=== PATIENT | male | born 1990 | race Caucasian/White ===

== ENCOUNTER 2018-10-26 11:43 | Emergency (ER) | payer BC ==
[2018-10-26] MEDS ORDERED: Ondansetron INJ* 2 MG/ML VIAL IV ONE (12:05)
[2018-10-26] MEDS ORDERED: NS 0.9% 1000 ML** 1,000 ML IV ONE (12:05)
[2018-10-26 12:56] LABS: ABS Monocytes 0.4 10^3/ul (0-0.8); ABS Neutrophils 4.5 10^3/ul (1.5-7.7); Eosinophil % 0.6 %; Hematocrit 50 % (42-52); Hemoglobin 17.6 g/dL (14.0-18.0); Lymphocyte % 16.7 %; Mean Corpuscular HGB Conc 36 g/dL (31-36); Mean Corpuscular Hemoglobin 31 pg (27-31); Mean Corpuscular Volume 89 fL (80-94); Mean Platelet Volume 7.9 fL (7.4-10.4); Nucleated Red Blood Cells % 0.1; Platelet Count 185 10^3/uL (150-450); Red Blood Count 5.59 10^6 /uL (4.18-5.48); Red Cell Distribution Width 14 % (10-15); White Blood Count 5.9 10^3/uL (3.5-10.8)
[2018-10-26 13:09] LABS: ALT 24 U/L (7-52); AST 23 U/L (13-39); Albumin 4.4 g/dL (3.2-5.2); Albumin/Globulin Ratio 1.6 (1-3); Alkaline Phosphatase 83 U/L (34-104); Anion Gap 6 mmol/L (2-11); BUN/Creatinine Ratio 12.5 (8-20); Blood Urea Nitrogen 10 mg/dL (6-24); C Reactive Protein < 1.00 mg/L (<8.01); CO2 Carbon Dioxide 27 mmol/L (22-32); Calcium 9.8 mg/dL (8.6-10.3); Chloride 104 mmol/L (101-111); EGFR African American 141.4 (>60); EGFR Non-African American 116.9 (>60); Globulin 2.7 g/dL (2-4); Glucose 120 mg/dL (70-100); Potassium 3.7 mmol/L (3.5-5.0); Sodium 137 mmol/L (135-145); Total Protein 7.1 g/dL (6.4-8.9)
[2018-10-26 13:45] VITALS: BP 131/80
[2018-10-26] MEDS ORDERED: Meclizine TAB* 12.5 MG PO ONE ×2 (13:47→13:49)
[2018-10-26 16:14] LABS: HIV 4th Generation Negative (Negative)
--- NOTE | 2018-11-01 08:02 | ED ---
Syncope/Near Syncope - HPI Summary HPI Summary: Patient is an otherwise healthy 28-year-old male who presents to the ED with concern for "feeling like I'm going to pass out" 1 hour. He states he was diagnosed with UTI a week ago as well as dehydration. He states he feels well now, but was concerned due to his feeling like he would have a syncopal episode. He denies any cardiac issues. Denies any chest pain, shortness of breath, headache, she'll changes, dizziness or lightheadedness. He states during the time he felt he was going to pass out, he felt fatigued. He denies any dysuria, back pain, fevers, sweats, chills. He states he is otherwise healthy and takes no medications. - History Of Current Complaint Chief Complaint: EDSyncope Time Seen by Provider: 10/26/18 11:51 Hx Obtained From: Patient Onset/Duration: Sudden Onset Timing: Constant Associated Head Trauma: No Aggravating Factor(s): Nothing Alleviating Factor(s): Nothing Associated Signs And Symptoms: Negative - Risk Factors Cardiac Risk Factors: Negative Dysrhythmia Risk Factors: Negative Risk Factor(s): Negative - Allergies/Home Medications Allergies/Adverse Reactions: Allergies Allergy/AdvReac Type Severity Reaction Status Date / Time Penicillins Allergy Hives Verified 10/26/18 11:50 Home Medications: Home Medications Omeprazole 1 tab PO DAILY 10/26/18 [History Confirmed 10/26/18] PMH/Surg Hx/FS Hx/Imm Hx Previously Healthy: Yes Endocrine/Hematology History: Denies: Hx Diabetes Cardiovascular History: Denies: Hx Hypertension, Hx Pacemaker/ICD Respiratory History: Denies: Hx Asthma Sensory History: Denies: Hx Hearing Aid Psychiatric History: Denies: Hx Panic Disorder - Surgical History Surgery Procedure, Year, and Place: PIN IN BOTH FEMURS AT HIP - Immunization History Hx Pertussis Vaccination: No Immunizations Up to Date: Yes Infectious Disease History: No Infectious Disease History: Denies: Traveled Outside the [place] in Last 30 Days - Social History Occupation: Employed Full-time Lives: With Family Alcohol Use: Occasionally Substance Use Type: Reports: None Smoking Status (MU): Never Smoked Tobacco Review of Systems Constitutional: Negative Negative: Fever, Chills, Fatigue, Skin Diaphoresis Negative: Photophobia, Blurred Vision, Diplopia, Drainage, Erythema Negative: Palpitations, Chest Pain Negative: Shortness Of Breath, Cough Musculoskeletal: Negative Negative: Rash, Bruising Neurological: Negative Negative: Headache, Weakness, Numbness, Syncope All Other Systems Reviewed And Are Negative: Yes Physical Exam Triage Information Reviewed: Yes Vital Signs On Initial Exam: Initial Vitals Temp Pulse Resp BP Pulse Ox 97.4 F 89 16 148/78 100 10/26/18 11:46 10/26/18 11:46 10/26/18 11:46 10/26/18 11:46 10/26/18 11:46 Vital Signs Reviewed: Yes Appearance: Positive: Well-Appearing, Well-Nourished Skin: Positive: Warm, Skin Color Reflects Adequate Perfusion Head/Face: Positive: Normal Head/Face Inspection Eyes: Positive: EOMI, Conjunctiva Clear Neck: Positive: Supple, No Lymphadenopathy Respiratory/Lung Sounds: Positive: Clear to Auscultation, Breath Sounds Present Cardiovascular: Positive: RRR, Pulses are Symmetrical in both Upper and Lower Extremities Musculoskeletal: Positive: Strength/ROM Intact Neurological: Positive: Speech Normal Psychiatric: Positive: Normal, Affect/Mood Appropriate AVPU Assessment: Alert Diagnostics - Vital Signs Vital Signs Temp Pulse Resp BP Pulse Ox 10/26/18 14:04 98.7 F 92 18 131/80 97 10/26/18 13:29 91 19 131/80 97 10/26/18 13:01 86 13 97 10/26/18 12:59 89 26 142/87 98 10/26/18 12:01 87 27 99 10/26/18 11:59 94 21 143/86 98 10/26/18 11:58 88 15 100 10/26/18 11:46 97.4 F 89 16 148/78 100 - Laboratory Lab Results: Lab Results 10/26/18 10/26/18 10/26/18 Range/Units 12:27 12:27 12:27 WBC 5.9 (3.5-10.8) 10^3/uL RBC 5.59 H (4.18-5.48) 10^6 /uL Hgb 17.6 (14.0-18.0) g/dL Hct 50 (42-52) % MCV 89 (80-94) fL MCH 31 (27-31) pg MCHC 36 (31-36) g/dL RDW 14 (10-15) % Plt Count 185 (150-450) 10^3/uL MPV 7.9 (7.4-10.4) fL Neut % (Auto) 75.9 % Lymph % (Auto) 16.7 % Dyer % (Auto) 6.5 % Eos % (Auto) 0.6 % Baso % (Auto) 0.3 % Absolute Neuts (auto) 4.5 (1.5-7.7) 10^3/ul Absolute Lymphs (auto) 1.0 (1.0-4.8) 10^3/ul Absolute Monos (auto) 0.4 (0-0.8) 10^3/ul Absolute Eos (auto) 0.0 (0-0.6) 10^3/ul Absolute Basos (auto) 0.0 (0-0.2) 10^3/ul Absolute Nucleated RBC 0.0 10^3/ul Nucleated RBC % 0.1 Sodium 137 (135-145) mmol/L Potassium 3.7 (3.5-5.0) mmol/L Chloride 104 (101-111) mmol/L Carbon Dioxide 27 (22-32) mmol/L Anion Gap 6 (2-11) mmol/L BUN 10 (6-24) mg/dL Creatinine 0.80 (0.67-1.17) mg/dL Est GFR ( Amer) 141.4 (>60) Est GFR (Non-Af Amer) 116.9 (>60) BUN/Creatinine Ratio 12.5 (8-20) Glucose 120 H (70-100) mg/dL Lactic Acid 1.0 (0.5-2.0) mmol/L Calcium 9.8 (8.6-10.3) mg/dL Total Bilirubin 1.20 H (0.2-1.0) mg/dL AST 23 (13-39) U/L ALT 24 (7-52) U/L Alkaline Phosphatase 83 (34-104) U/L C-Reactive Protein < 1.00 (<8.01) mg/L Total Protein 7.1 (6.4-8.9) g/dL Albumin 4.4 (3.2-5.2) g/dL Globulin 2.7 (2-4) g/dL Albumin/Globulin Ratio 1.6 (1-3) HIV 1&2 Ab/P24 Ag 4thGn (Negative) 10/26/18 Range/Units 14:33 WBC (3.5-10.8) 10^3/uL RBC (4.18-5.48) 10^6 /uL Hgb (14.0-18.0) g/dL Hct (42-52) % MCV (80-94) fL MCH (27-31) pg MCHC (31-36) g/dL RDW (10-15) % Plt Count (150-450) 10^3/uL MPV (7.4-10.4) fL Neut % (Auto) % Lymph % (Auto) % Dyer % (Auto) % Eos % (Auto) % Baso % (Auto) % Absolute Neuts (auto) (1.5-7.7) 10^3/ul Absolute Lymphs (auto) (1.0-4.8) 10^3/ul Absolute Monos (auto) (0-0.8) 10^3/ul Absolute Eos (auto) (0-0.6) 10^3/ul Absolute Basos (auto) (0-0.2) 10^3/ul Absolute Nucleated RBC 10^3/ul Nucleated RBC % Sodium (135-145) mmol/L Potassium (3.5-5.0) mmol/L Chloride (101-111) mmol/L Carbon Dioxide (22-32) mmol/L Anion Gap (2-11) mmol/L BUN (6-24) mg/dL Creatinine (0.67-1.17) mg/dL Est GFR ( Amer) (>60) Est GFR (Non-Af Amer) (>60) BUN/Creatinine Ratio (8-20) Glucose (70-100) mg/dL Lactic Acid (0.5-2.0) mmol/L Calcium (8.6-10.3) mg/dL Total Bilirubin (0.2-1.0) mg/dL AST (13-39) U/L ALT (7-52) U/L Alkaline Phosphatase (34-104) U/L C-Reactive Protein (<8.01) mg/L Total Protein (6.4-8.9) g/dL Albumin (3.2-5.2) g/dL Globulin (2-4) g/dL Albumin/Globulin Ratio (1-3) HIV 1&2 Ab/P24 Ag 4thGn Negative (Negative) Result Diagrams: 10/26/18 12:27 10/26/18 12:27 Lab Statement: Any lab studies that have been ordered have been reviewed, and results considered in the medical decision making process. Course/Dx Course Of Treatment: During the course of treatment, labs are obtained all of which were negative. He requests an HIV test while he was here although he states he does not have multiple sexual partners and is at a low risk. Patient appears well, nondiaphoretic and nontoxic in appearing. Lungs CTA. RRR. Does not appear to be dehydrated. Discussed all findings with the patient and he is okay for discharge at this time. Patient sxs likely secondary to not eating this morning. No further workup is needed at this time. - Diagnoses Differential Diagnosis/HQI/PQRI: Positive: Hypoglycemia, Hypovolemia, Metabolic Reaction, Vasovagal Episode Provider Diagnoses: Near syncope Discharge - Sign-Out/Discharge Documenting (check all that apply): Patient Departure Patient Received Moderate/Deep Sedation with Procedure: No - Discharge Plan Condition: Stable Disposition: HOME Prescriptions: Meclizine TAB* [Antivert 12.5 TAB*] 12.5 mg PO TID PRN #12 tab MDD 3 PRN Reason: Dizziness Ondansetron ODT TAB* [Zofran 4 MG Odt TAB*] 4 mg PO Q6H PRN #12 tab.odt MDD 4 PRN Reason: Nausea Patient Education Materials: Acute Nausea and Vomiting (ED), Lightheadedness ( ED), Dizziness (ED) Referrals: [facility] [Outside] Kofi Vera MD [Primary Care Provider] - Additional Instructions: please follow-up with [facility] if he develop any worsening symptoms If you're unable to follow up with [facility] and he develop any worsening symptoms, please return to the ED Zofran as needed for any nausea or vomiting Tylenol 650 mg 3 times daily 3 days for generalized weakness/illness Drink plenty of fluids Meclizine 12.5 mg 3 times daily as needed for dizziness or vertigo-like symptoms As discussed, this is likely a viral illness - Billing Disposition and Condition Condition: STABLE Disposition: Home
== END 2018-10-26 14:04 | disposition home or self-care (01) ==
LOC: ED 11:43
DX: R55 Syncope and collapse (principal); Z88.0 Allergy status to penicillin
CPT/HCPCS: 36415; 80053; 83605; 85025; 86140; 87389; 96361; 96374; 96375; 99283; A9270-GY; J2405